=== PATIENT | male | born 1985 | race Caucasian/White ===

== ENCOUNTER 2020-04-20 18:27 | Emergency (ER) | payer BC, SELFPAY ==
[2020-04-20 18:40] VITALS: BP 154/96; PULSE 115; RESP 20; TEMP 37.1; O2SAT 100
[2020-04-20 19:57] LABS: Basophils Absolute Auto 0.1 K/mm3 (0.0-0.1); Basophils Percent Auto 0.6 % (0.2-1.2); Eosinophils Absolute Auto 0.3 K/mm3 (0-0.3); Eosinophils Percent Auto 3.9 % (0-4.4); Hematocrit 41.5 % (42.0-52.0); Hemoglobin 14.1 g/dL (14.0-18.0); Immature Granulocyte Absolute 0.02 K/mm3 (0.00-0.031); Immature Granulocyte Percent A 0.2 % (0-0.5); Lymphocytes Percent Auto 22.7 % (18.3-44.2); Mean Corpuscular Hemoglobin 31.2 pg (26-34); Mean Corpuscular Volume 91.8 fl (80-100); Mean Platelet Volume 9.6 fl (7.4-10.4); Monocytes Absolute Auto 0.7 K/mm3 (0.1-0.6); Monocytes Percent Auto 8.6 % (2.6-8.5); Neutrophils Absolute Auto 5.3 K/mm3 (1.3-6.7); Platelet Count Result 290 k/mm3 (150-375); Red Blood Count 4.52 M/mm3 (4.6-6.20); Red Cell Distribution Width 13.2 % (11.5-14.5); White Blood Count 8.4 K/mm3 (4.5-10.0)
--- NOTE | 2020-04-20 19:57 | ED.GENADULT ---
HPI - General Adult General Chief complaint: Extremity Injury, Lower Stated complaint: L lower leg swelling/redness Time Seen by Provider: 04/20/20 19:30 History of Present Illness HPI narrative: Patient is a 34 y/o male complaining of burning left lower abdominal pain for last 4-5 days. He rates his pain as 8/10. Pain is worse with weight bearing. His pain radiates to left upper leg. He denies any fever or chill. He states the he may have bruised his legs while climbing on ladders. Related Data Home Medications Medication Instructions Recorded Confirmed No Home Medications 04/20/20 04/20/20 Allergies Allergy/AdvReac Type Severity Reaction Status Date / Time No Known Allergies Allergy Verified 04/20/20 20:52 Review of Systems Constitutional: Constitutional: Denies chills, Denies fever(s), Denies headache(s) and Denies weakness Eyes: Eyes: Denies blurry vision ENT: Denies headache(s) and Denies neck pain Cardiovascular: Cardiovascular: Denies chest pain and Denies dyspnea Respiratory: Respiratory: Denies cough and Denies dyspnea Gastrointestinal: Gastrointestinal: Denies abdominal pain, Denies diarrhea, Denies nausea and Denies vomiting Genitourinary: Genitourinary: Denies hematuria and Denies dysuria Musculoskeletal: Musculoskeletal: Denies back pain, Denies neck pain and Reports other (left leg pain) Integumentary/Breasts: Skin/Breast: Reports erythema (left leg) Neurologic: Denies headache(s) and Denies weakness PMFSH Social History Social History Gender identity (if verbalized by the patient): Male Exam Const: General: no acute distress and well developed Orientation/consciousness: oriented to person, oriented to place, oriented to time and patient oriented x3 HENMT: Head: normocephalic Ears: external ears normal General nose exam: Normal external nose present Eyes: General: appearance normal, both eyes and all related structures Conjunctivae: conjunctivae normal Neck: Neck: normal visual inspection and full ROM Chest: Chest palpation & inspection: normal inspection of the chest and no tenderness Resp: Effort & Inspection: normal respiratory effort Auscultation: clear to auscultation bilaterally Cardio: Rate: regular rate Rhythm: regular rhythm GI: GI Palp: No abdominal tenderness and Yes Soft to palpation Skin: General skin exam: normal color, turgor normal and erythema (left lower leg) Neuro: General: oriented to person, oriented to place, oriented to time and patient oriented x3 Cognition (Neuro): normal cognition Extrem: General: normal to inspection, full ROM and no pedal edema Psych: Appearance: grossly normal Mental Status: mental status grossly normal Affect: normal affect Course Vital Signs Vital signs: Vital Signs Temperature 37.1 C 04/20/20 18:40 Pulse Rate 115 H 04/20/20 18:40 Respiratory Rate 20 04/20/20 18:40 Blood Pressure 154/96 H 04/20/20 18:40 Pulse Oximetry 100 04/20/20 18:40 Temperature 37.1 C 04/20/20 18:40 Pulse Rate 80 04/20/20 22:59 Respiratory Rate 18 04/20/20 22:59 Blood Pressure 132/80 04/20/20 22:59 Pulse Oximetry 98 04/20/20 22:59 Medical Decision Making Vital Signs Vital Signs: Vital Signs Temperature 37.1 C 04/20/20 18:40 Pulse Rate 115 H 04/20/20 18:40 Respiratory Rate 20 04/20/20 18:40 Blood Pressure 154/96 H 04/20/20 18:40 Pulse Oximetry 100 04/20/20 18:40 Temperature 37.1 C 04/20/20 18:40 Pulse Rate 80 04/20/20 22:59 Respiratory Rate 18 04/20/20 22:59 Blood Pressure 132/80 04/20/20 22:59 Pulse Oximetry 98 04/20/20 22:59 Lab Data Result diagrams: 04/20/20 19:41 04/20/20 19:41 Labs: Lab Results 04/20/20 04/20/20 Range/Units 19:41 19:41 WBC 8.4 (4.5-10.0) K/mm3 RBC 4.52 L (4.6-6.20) M/mm3 Hgb 14.1 (14.0-18.0) g/dL Hct 41.5 L (42.0-52.0) % MCV 91.8 (80-100) fl MCH 31.2 (26-34) pg MCHC
[2020-04-20 20:09] LABS: Alanine Aminotransferase 35 U/L (4-50); Albumin Level 4.5 g/dL (3.5-5.1); Alkaline Phosphatase 77 U/L (38-126); Aspartate Amino Transferase 29 U/L (17-59); Bilirubin,Total 0.8 mg/dL (0.2-1.3); Blood Urea Nitrogen 14 mg/dL (9-20); Calcium 9.3 mg/dL (8.4-10.2); Carbon Dioxide 27 mmol/L (22-30); Chloride 99 mmol/L (98-107); Estimated CRCL calculation 96 ml/min; Estimated Glomerular Filt Rate > 60; Glucose 92 mg/dL (75-110); Potassium 3.5 mmol/L (3.4-5.0); Sodium 137 mmol/L (137-145)
[2020-04-20 20:54] VITALS: BP 136/84; PULSE 75; RESP 20; O2SAT 99
[2020-04-20] MEDS: KETOROLAC 30 MG/ML VIAL (*BKC) IV PUSH (22:14)
[2020-04-20 22:59] VITALS: BP 132/80; PULSE 80; RESP 18; O2SAT 98
== END 2020-04-20 23:00 | disposition home or self-care (01) ==
PROVIDERS: Emergency Provider Emergency Medicine; PCP Family Medicine
DX: L03.116 Cellulitis of left lower limb (principal)
CPT/HCPCS: 36415; 80053; 85025; 96365; 96375; 99284; J1885; J3370

== ENCOUNTER 2021-06-06 16:29 | Emergency (ER) | payer BC, SELFPAY ==
--- NOTE | ~2021-06-06 | XR_ITS ---
EXAMINATION: XR chest 2V DATE: 06/06/2021 16:56 INDICATION: Syncope. Weakness. TECHNIQUE: Frontal and lateral views of the chest were obtained. COMPARISON: None. FINDINGS: The chest demonstrates clear lungs without pneumonia, pleural effusion, or pneumothorax. Th e heart size is normal. IMPRESSION: 1. No acute cardiopulmonary disease. Reviewed, dictated and finalized at location A.
--- NOTE | 2021-06-06 16:34 | ECG_ITS ---
Measurements Intervals [place] Rate: 99 P: 57 MT: 151 QRS: 20 QRSD: 84 T: 55 QT: 329 QTc: 423 Interpretive Statements SINUS RHYTHM DELAYED PRECORDIAL R/S TRANSITION NONSPECIFIC T-WAVE ABNORMALITY- INF/LAT LEADS BORDERLINE ECG Electronically Signed On 06-06-2021 20:09:59 CDT by Lopez Avina D.O.
[2021-06-06 16:35] VITALS: BP 152/87; PULSE 112; RESP 18; TEMP 37.2; O2SAT 100
[2021-06-06 17:14] LABS: Alanine Aminotransferase 33 U/L (4-50); Albumin Level 4.3 g/dL (3.5-5.1); Alkaline Phosphatase 73 U/L (38-126); Anion Gap 10 mmol/L (8-16); Aspartate Amino Transferase 24 U/L (17-59); Bilirubin,Total 0.4 mg/dL (0.2-1.3); Blood Urea Nitrogen 9 mg/dL (9-20); Calcium 9.2 mg/dL (8.4-10.2); Carbon Dioxide 25 mmol/L (22-30); Chloride 101 mmol/L (98-107); Estimated CRCL calculation 155 ml/min; Estimated Glomerular Filt Rate > 60; Glucose 104 mg/dL (65-110); Potassium 3.8 mmol/L (3.4-5.0); Sodium 136 mmol/L (137-145)
[2021-06-06 17:15] LABS: Basophils Percent Auto 0.5 % (0.2-1.2); Eosinophils Absolute Auto 0.2 K/mm3 (0-0.3); Hematocrit 43.6 % (42.0-52.0); Hemoglobin 14.7 g/dL (14.0-18.0); Immature Granulocyte Absolute 0.04 K/mm3 (0.00-0.031); Immature Granulocyte Percent A 0.5 % (0-0.5); Lymphocytes Absolute Auto 0.45 K/mm3 (0.9-3.2); Lymphocytes Percent Auto 5.6 % (18.3-44.2); Mean Corpuscular HGB Conc 33.7 g/dl (32-36); Mean Corpuscular Hemoglobin 31.4 pg (26-34); Mean Corpuscular Volume 93.2 fl (80-100); Mean Platelet Volume 9.6 fl (7.4-10.4); Monocytes Absolute Auto 0.8 K/mm3 (0.1-0.6); Monocytes Percent Auto 10.2 % (2.6-8.5); Neutrophils Absolute Auto 6.5 K/mm3 (1.3-6.7); Neutrophils Percent Auto 80.2 % (45.5-73.1); Platelet Count Result 238 k/mm3 (150-375); Red Blood Count 4.68 M/mm3 (4.6-6.20); Red Cell Distribution Width 13.2 % (11.5-14.5)
[2021-06-06 17:42] VITALS: BP 145/83; PULSE 100; RESP 20; O2SAT 98
--- NOTE | 2021-06-06 17:42 | PC.NURSE ---
PT STATES STILL UNABLE TO URINATE AT THIS TIME
--- NOTE | 2021-06-06 18:04 | ED.HA ---
HPI - Headache General Chief Complaint: Headache Stated Complaint: fatigue/chavez Time Seen by Provider: 06/06/21 17:57 History of Present Illness HPI Narrative: Not feeling well for the past few days. Fatigue, body aches, chills, headache. Tried OTC medications without relief. Has not had COVID-19 vaccine. Related Data Home Medications Medication Instructions Recorded Confirmed No Home Medications 04/20/20 06/06/21 Allergies Allergy/AdvReac Type Severity Reaction Status Date / Time No Known Allergies Allergy Verified 06/06/21 17:43 Review of Systems Review of Systems: All systems reviewed & are unremarkable except as noted in HPI and below Constitutional: Constitutional: Reports chills ENT: Reports dizziness Cardiovascular: Cardiovascular: Denies chest pain Respiratory: Respiratory: Reports cough and Denies dyspnea Gastrointestinal: Gastrointestinal: Reports nausea Musculoskeletal: Musculoskeletal: Reports myalgias Neurologic: Reports headache(s) and Reports weakness PMFSH Social History Social History Gender identity (if verbalized by the patient): Male Exam Const: General: no acute distress and alert Orientation/consciousness: patient oriented x3 HENMT: Head: normal to inspection Neck: Neck: normal visual inspection Resp: Effort & Inspection: normal respiratory effort Auscultation: clear to auscultation bilaterally, no rales, no rhonchi and no wheezes Cardio: Jugular venous distension: no JVD Rate: tachycardic Rhythm: regular rhythm Heart sounds: no murmurs GI: Inspection: non-distended GI Palp: Yes Soft to palpation and No Tenderness to palpation present (GI) Skin: General skin exam: normal color Neuro: General: patient oriented x3 and moves all extremities Speech: normal speech Extrem: General: no edema Psych: Affect: normal affect Course Vital Signs Vital signs: Vital Signs Temperature 37.2 C 06/06/21 16:35 Pulse Rate 112 H 06/06/21 16:35 Respiratory Rate 18 06/06/21 16:35 Blood Pressure 152/87 H 06/06/21 16:35 Pulse Oximetry 100 06/06/21 16:35 Temperature 37.2 C 06/06/21 16:35 Pulse Rate 97 06/06/21 20:02 Respiratory Rate 14 06/06/21 20:02 Blood Pressure 144/71 H 06/06/21 18:19 Pulse Oximetry 100 06/06/21 20:02 MDM - Headache MDM Narrative Medical decision making narrative: COVID-19. Vitals stable. Lab Data Result diagrams: 06/06/21 16:44 06/06/21 16:44 Labs: Lab Results 06/06/21 06/06/21 06/06/21 Range/Units 16:44 16:44 18:20 WBC 8.0 (4.5-10.0) K/mm3 RBC 4.68 (4.6-6.20) M/mm3 Hgb 14.7 (14.0-18.0) g/dL Hct 43.6 (42.0-52.0) % MCV 93.2 (80-100) fl MCH 31.4 (26-34) pg MCHC 33.7 (32-36) g/dl RDW 13.2 (11.5-14.5) % Plt Count 238 (150-375) k/mm3 MPV 9.6 (7.4-10.4) fl Immature Gran % (Auto) 0.5 (0-0.5) % Neut % (Auto) 80.2 H (45.5-73.1) % Lymph % (Auto) 5.6 L (18.3-44.2) % [place] % (Auto) 10.2 H (2.6-8.5) % Eos % (Auto) 3.0 (0-4.4) % Baso % (Auto) 0.5 (0.2-1.2) % Lymph # (Auto) 0.45 L (0.9-3.2) K/mm3 [place] # (Auto) 0.8 H (0.1-0.6) K/mm3 Eos # (Auto) 0.2 (0-0.3) K/mm3 Baso # (Auto) 0.0 (0.0-0.1) K/mm3 Abs Immat Gran (auto) 0.04 H (0.00-0.031) K/mm3 Absolute Neuts (auto) 6.5 (1.3-6.7) K/mm3 Absolute Nucleated RBC 0.0 (0.0-0.012) K/mm3 Nucleated RBC % 0.0 (0.0-0.2) % Sodium 136 L (137-145) mmol/L Potassium 3.8 (3.4-5.0) mmol/L Chloride 101 (98-107) mmol/L Carbon Dioxide 25 (22-30) mmol/L Anion Gap 10 (8-16) mmol/L BUN 9 D (9-20) mg/dL Creatinine 0.70 (0.7-1.3) mg/dL Estim Creat Clear Calc 155 ml/min Estimated GFR > 60 (59 - ) Glucose 104 (65-110) mg/dL Calcium 9.2 (8.4-10.2) mg/dL Total Bilirubin 0.4 (0.2-1.3) mg/dL AST 24 (17-59) U/L ALT 33 (4-50) U/L Alkaline Phosphatase 73 (38-126) U/L Total
[2021-06-06] MEDS: KETOROLAC 30 MG/ML VIAL (*BKC) IV PUSH (18:15)
[2021-06-06] MEDS: METOCLOPRAMIDE HCL INJ 10 MG/2 ML VIAL IV PUSH (18:16)
[2021-06-06] MEDS: diphenhydrAMINE HCl INJ 50 MG/ML VIAL 25 MG IV PUSH (18:17)
[2021-06-06 18:19] VITALS: BP 144/71; PULSE 86; RESP 20; O2SAT 100
[2021-06-06] MEDS: SODIUM CHLORIDE 0.9% IV 1,000 ML 999 ML IV CONT (18:19)
[2021-06-06 18:49] LABS: EDCOVIDSCREEN Positive (Negative)
[2021-06-06 20:02] VITALS: PULSE 97; RESP 14; O2SAT 100
== END 2021-06-06 20:14 | disposition home or self-care (01) ==
PROVIDERS: Emergency Provider Emergency Medicine; PCP Family Medicine
DX: U07.1 COVID-19 (principal)
CPT/HCPCS: 36415; 71046; 80053; 85025; 87426; 93005; 96365; 96375; 99284; C9803; J0131; J1200; J1885; J2765; J7030